=== PATIENT | male | born 1980 | race Caucasian/White ===

== ENCOUNTER 2016-04-29 16:53 | Emergency (ER) | payer SELFPAY ==
[~2016-04-29] VITALS: Ht 188 cm; Wt 110.0 kg
[2016-04-29 16:54] VITALS: BP 143/87; PULSE 94; RESP 16; TEMP 97.9; O2SAT 97
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
== END 2016-04-29 19:55 | disposition home or self-care (01) ==
LOC: NEPB 16:53
DX: R68.89 Other general symptoms and signs (principal); Z75.1 Person awaiting admission to adequate facility elsewhere; Z02.89 Encounter for other administrative examinations
CPT/HCPCS: 99282

== ENCOUNTER 2016-10-15 13:47 | Emergency (ER) | payer SELFPAY ==
[~2016-10-15] VITALS: Ht 188 cm; Wt 102.2 kg
[2016-10-15 13:49] VITALS: BP 135/74; PULSE 90; RESP 15; TEMP 97.7; O2SAT 98
[2016-10-15 15:46] LABS: AUTOMATED NEUTROPHIL # 3.5 TH/MM3 (1.8-7.7); BASOPHIL % 0.4 % (0.0-2.0); EOSINOPHIL # 0.2 TH/MM3 (0-0.4); EOSINOPHIL % 2.9 % (0.0-4.0); HEMATOCRIT 37.4 % (39.0-51.0); HEMO FLAGS DIFF FINAL; LYMPH % 26.8 % (9.0-44.0); LYMPHOCYTE # 1.7 TH/MM3 (1.0-4.8); MEAN CELL VOLUME 96.9 FL (80.0-100.0); MEAN CORPUSCULAR HEMOGLOBIN 32.9 PG (27.0-34.0); MONO % 13.4 % (0.0-8.0); NEUT % 56.5 % (16.0-70.0); PLATELET COUNT 177 TH/MM3 (150-450); RED BLOOD COUNT 3.86 MIL/MM3 (4.50-5.90); RED CELL DISTRIBUTION WIDTH 14.1 % (11.6-17.2); WHITE BLOOD COUNT 6.2 TH/MM3 (4.0-11.0)
[2016-10-15 15:55] LABS: ANION GAP 6 MEQ/L (5-15); BICARBONATE 28.7 MEQ/L (21.0-32.0); BLOOD UREA NITROGEN 16 MG/DL (7-18); CHLORIDE 102 MEQ/L (98-107); GLOMERULAR FILTRATION RATE 95 ML/MIN (>89); POTASSIUM 3.9 MEQ/L (3.5-5.1); SODIUM (NA) 137 MEQ/L (136-145)
[2016-10-15 15:59] LABS: CREATINE KINASE 192 U/L (39-308)
[2016-10-15 16:11] LABS: CKMB 2.4 NG/ML (0.5-3.6)
--- NOTE | 2016-10-16 19:59 | EKG ---
Date Performed: 10/15/2016 Time Performed: 14:39:32 PTAGE: 36 years EKG: Sinus rhythm NONSPECIFIC ST ELEVATION BORDERLINE ECG Compared to prior tracing no significant change DOCTOR: Be Thurston Interpretating Date/Time 10/16/2016 19:57:43
== END 2016-10-15 18:03 | disposition left against medical advice (07) ==
LOC: NED 13:47
DX: R07.9 Chest pain, unspecified (principal); Z53.21 Procedure and treatment not carried out due to patient leaving prior to being seen by health care provider
CPT/HCPCS: 80048; 82550; 82552; 84484; 85025; 93005; 99281